=== PATIENT | male | born 1940 | race Caucasian/White ===

== ENCOUNTER 2018-08-07 13:00 | Inpatient (IN) | payer BC ==
[2018-08-12] MEDS ORDERED: VANCOMYCIN HCL 1,000 MG in DEXTROSE 5 % IN WATER 250 ML IVPB ONE ×2 (06:00)
[2018-08-12] MEDS ORDERED: METOCLOPRAMIDE 10 MG TABLET PO ONE (06:00)
[2018-08-12] MEDS ORDERED: CELECOXIB 100 MG CAPSULE PO ONE (06:00)
[2018-08-12] MEDS ORDERED: CEFAZOLIN 2 Gram 2 GM/50 ML BAG IVPB ONE (06:00)
[2018-08-12] MEDS ORDERED: MECLIZINE 25 MG TABLET PO ONE (06:00)
[2018-08-12] MEDS ORDERED: FAMOTIDINE 20MG TABLET PO ONE (06:00)
[2018-08-12 11:56] LABS: ABO GROUP B; ANTIBODY SCREEN NEGATIVE (NEGATIVE); RH TYPE POSITIVE
[2018-08-12] MEDS ORDERED: MAGNESIUM HYDROXIDE 30 ML UDC PO PRN (12:36)
[2018-08-12] MEDS ORDERED: ACETAMINOPHEN W/ CODEINE 300MG/60MG TABLET PO PRN ×2 (12:36)
[2018-08-12] MEDS ORDERED: ONDANSETRON HCL IV 4 MG/2 ML VIAL IVP PRN (12:36)
[2018-08-12] MEDS ORDERED: BISACODYL 10 MG SUPP RC PRN (12:36)
[2018-08-12] MEDS ORDERED: NALOXONE 0.4 MG/1 ML VIAL IVP PRN (12:36)
[2018-08-12] MEDS ORDERED: KETOROLAC 30 MG/ML VIAL IVP PRN ×2 (12:36)
[2018-08-12] MEDS ORDERED: AL HYDROX/MAG HYDROX 30ML UD PO PRN (12:36)
[2018-08-12] MEDS ORDERED: DIPHENHYDRAMINE HCL 25 MG CAPSULE PO PRN (12:36)
[2018-08-12] MEDS ORDERED: ACETAMINOPHEN 325 MG TAB PO PRN (12:36)
[2018-08-12] MEDS ORDERED: ZOLPIDEM TARTRATE 5 MG TABLET PO PRN (12:36)
[2018-08-12] MEDS ORDERED: KETAMINE HCL 100MG/1ML VIAL INJ ONE (14:00)
[2018-08-12] MEDS ORDERED: MIDAZOLAM HCL 2MG/2ML VIAL IV ONE (14:00)
[2018-08-12] MEDS ORDERED: GLYCOPYRROLATE 0.2 MG/ML ML IV ONE (14:00)
[2018-08-12] MEDS ORDERED: PROPOFOL 10 MG/ML VIAL IV ONE (14:00)
[2018-08-12] MEDS: POTASSIUM CHLORIDE/D5-0.9%NACL 20 MEQ/1,000 ML BAG IV SCH ×2 (16:00→21:38)
[2018-08-12] MEDS: HYDROCODONE/APAP 10/325 TABLET PO PRN ×3 (16:25→21:36)
[2018-08-12] MEDS: LISINOPRIL 10 MG TABLET PO SCH ×2 (16:25→21:37)
[2018-08-12] MEDS: CEFAZOLIN 2 Gram 2 GM/50 ML BAG IVPB SCH (18:10)
[2018-08-12] MEDS: HYDROMORPHONE HCL 2 MG/ML VIAL IM PRN (19:17)
[2018-08-12] MEDS: DOCUSATE SODIUM 100 MG CAPSULE PO SCH (21:40)
[2018-08-13] MEDS: HYDROCODONE/APAP 10/325 TABLET PO PRN ×5 (00:28→21:44)
[2018-08-13] MEDS: CEFAZOLIN 2 Gram 2 GM/50 ML BAG IVPB SCH ×2 (02:13→10:46)
[2018-08-13] MEDS: HYDROMORPHONE HCL 2 MG/ML VIAL IM PRN ×2 (02:16→19:19)
[2018-08-13] MEDS: POTASSIUM CHLORIDE/D5-0.9%NACL 20 MEQ/1,000 ML BAG IV SCH ×3 (05:36→21:39)
[2018-08-13 06:38] LABS: HEMATOCRIT 39.3 % (42.0-52.0); HEMOGLOBIN 12.3 gm/dl (14.0-18.0)
[2018-08-13 06:50] LABS: CREATININE 1.3 mg/dL (0.7-1.2)
--- NOTE | 2018-08-13 08:36 | Rehab Evaluation ---
Patient Information - Patient Information Diagnosis: R hip OA Ordered Treatment: PT Evaluate and Treat Status: Initial Evaluation Surgery: Yes (THR R LE) Date of Surgery: 08/12/18 Past Medical/Surgical Hx: PAST MEDICAL/SURGICAL HISTORY Past Surgical History Right shoulder sx c scope EGD hernia repair TURP PMH - Respiratory Hx Respiratory Disorders No PMH - Cardiovascular Hx Cardiovascular Disorders Yes Hx Hypertension Yes: on meds with good control Exercise Tolerance Good PMH - Neuro Hx Neurological Disorders No PMH - GI Hx Gastrointestinal Disorders No PMH - Hx Genitourinary Disorders No PMH - Endocrine Hx Endocrine Disorders No PMH - Musculoskeletal Hx Musculoskeletal Disorders Yes Hx Gout Yes: in past Comment: right hip pain PMH - Psych Hx Psychiatric Problems No PMH - Hematology/Oncology Hx Hematology/Oncology Yes Disorders Hx Bruising Yes: bruises easily Premorbid Status: Detail (The patient was independent with all mobility prior to surgery.) Social History: Detail (The patient lives alone in an apartment with 7 steps at the enterance. The bathroom is equipped with a tub/shower combination, grab bars , standard toilet with a riser seat. The patient has a front wheeled walker and standard cane.) Precautions: [place], Fall, Other (THR precautions) - Time With Patient Total Time Spent With Patient (Min): 30 Treatment Procedures: Detail (PT evalution, gait training) Subjective Information - Subjective Information Per Patient (The patient had no complaints of pain but complained of R hip aching.) Objective Data - Mental Status Patient Orientation: Oriented x3 - Visual Perception Appears within normal limits for therapeutic activities - ROM Not within normal limits (The patient's R hip was within total hip precautions. All other LE AROM was WNL.) - Strength/Tone Not within normal limits (The patient's R LE strength was not tested secondary to s/p surgery, however LE strength was functional ie: patient was able to lift R LE in and out of bed. The patient's L LE strength was WNL.) - Bed Mobility Independent (The patient was independent with supine to and from sit and scooting up in bed.) - Transfers Independent (The patient was independent with sit to and from stand transfer.) - Balance Balance Sitting: Good Balance Standing: Good - Sensation Intact - Gait Detail (The patient ambulated with front wheeled walker a distance of 200 feet plus WBAT on the R LE with supervision for safety only.) Therapy Assessment - Therapy Assessment Detail (The patient was independent with bed mobility and sit to stand transfer and the patient requires supervision for safety only with ambulation. Feel the patient will progress well with mobility.) Patient Education - Patient Education Teaching Topic: Exercise/Activity (The patient's home THR exercise program was reviewed: ankle pump, supine hip abduction, heel slides, gluteal sets, quad sets , hamstring sets.), Precautions (The patient identified and expressed good understanding of THR precautions.) Response: Return Demonstration Teaching Method: Discussion, Demonstration, Handout Teaching Recipient: Patient Barriers To Learning: Age Related Problem List - Problem List Physical Therapy Problem List: Detail (1) Impaired ambulation due to R THR 2) Decreased R LR s/p surgery 3) Non ambulatory on the stairs) Goals - Goals Physical Therapy Goals: 1) The patient will require supervision for safety on a flight of stairs using proper technique. 2) The patient will be independent with all transfers including tub and car transer. Prognosis - Prognosis Good Plan - Plan Physical Therapy Plan: PT 1-2 times a day for gait training on stairs and transfer training.
[2018-08-13] MEDS: LISINOPRIL 10 MG TABLET PO SCH ×3 (09:21→21:40)
[2018-08-13] MEDS: RIVAROXABAN 10 MG TABLET PO SCH (09:21)
[2018-08-13] MEDS: FERROUS SULFATE 325 MG TAB PO SCH (09:21)
[2018-08-13] MEDS: DOCUSATE SODIUM 100 MG CAPSULE PO SCH ×2 (09:21→21:43)
[2018-08-13] MEDS ORDERED: BUPIVACAINE 0.5% W/EPI MPF 30 ML VIAL IVP ONE (09:23)
[2018-08-13] MEDS ORDERED: TRANEXAMIC ACID 1,000 MG/10 ML ML IV ONE (09:23)
--- NOTE | 2018-08-13 09:50 | Operative Note ---
DATE OF SURGERY: 08/12/2018 PREOPERATIVE DIAGNOSIS: End-stage arthrosis of the right hip. POSTOPERATIVE DIAGNOSIS: End-stage arthrosis of the right hip. OPERATION: Cementless right total hip arthroplasty using [employer] components with a size 56 no-hole Reflection cup, 32 mm diameter 35-degree offset liner, a size 15 high-offset cementless [place] stem with a +8 32 mm diameter cobalt chrome head. Staff Surgeon: Marbin Díaz MD Anesthesia: Spinal. PREPARATION: Chloraprep. INDIVIDUAL CONSIDERATIONS: None. PROCEDURE: The patient was taken to the operating room, placed supine on the operating room table. He had a successful induction of spinal anesthetic. He was then placed on his side right side up and his right leg and hip were prepped and draped in the usual fashion. The patient had direct posterior approach to the hip. Sharp dissection carried down through skin and subcutaneous tissues. Small veins were coagulated with a Bovie. The tensor gluteal fascia was opened along the entire length of the incision, and deep retractors were placed. Short external rotators were identified, piriformis fossa removed exposing the posterior capsule. Posterior capsulectomy was performed. Hip was dislocated posteriorly. He had basically totally exposed bone on his femoral head with large marginal osteophytes. An oscillating saw was used to make a neck cut just above the lesser trochanter. A rim capsulectomy was then performed. Starting with a 47 mm reamer to medialize to the medial wall, I reamed to the introitus, which was 55 for a 56 cup. I slightly under-reamed to a 54. After thorough irrigation, I impacted a size 56 no-hole Reflection cup in 20 degrees of forward flexion and 40 degrees of abduction using the extraarticular alignment guide and bony landmarks. There was solid cementless fixation. A large posterior wall osteophyte was removed with an osteotome. After irrigation, the center cap screw was placed and then I impacted a 35-degree offset 32 mm diameter liner with the offset directly posteriorly and slightly inferiorly. This gave an excellent stable acetabular construct, and this was packed off. The proximal femur was delivered into the wound, and box cutting osteotome was used to remove the proximal metaphyseal bone. Mid stem reaming was done to a size 15. I started barely feeling cortex between I would say around 13-francisco. I broached to a 15 dialing anteversion about 25 degrees. Followed the natural anteversion angle. After calcar reaming, it was found that a +8 trial had absolute stability. The trial was removed. I thorough irrigated out and then impacted a size 15 high offset [place] stem with solid cementless fixation and solid calcar contact. A +8 32 mm diameter cobalt chrome head was placed on the dried [place] taper. Hip was reduced. I had absolute stability, full anterior stability in extension and external rotation, full posterior stability with flexion up to the chest and even internally rotating 90 degrees. Hemostasis was obtained with a Bovie. Thorough irrigation again to remove any visual or palpable debris. Sciatic nerve was inspected and found to be completely intact. The patient did receive 1 g of tranexamic acid preoperatively. I mixed 1 g of tranexamic acid with 30 mL of saline and placed this deep in the fascia. The fascia was then closed with a running #2 quill, subcu was closed in layers with running 0 quill, skin was closed with ezra. The skin and subcutaneous tissue was infiltrated 30 mL of 0.5% Marcaine with epinephrine and a sterile bulky compressive GIOVANNY-type dressing was applied. The patient tolerated the procedure well. Needle and sponge counts were correct. Estimated blood loss was minimal. He was taken back to recovery in good condition. There were no complications. BRITTANY
--- NOTE | 2018-08-13 09:57 | Rehab Evaluation ---
Patient Information - Patient Information Diagnosis: DJD right hip Ordered Treatment: OT Evaluate and Treat Status: Initial Evaluation Surgery: Yes (THR R LE) Date of Surgery: 08/12/18 Past Medical/Surgical Hx: PAST MEDICAL/SURGICAL HISTORY Past Surgical History Right shoulder sx c scope EGD hernia repair TURP PMH - Respiratory Hx Respiratory Disorders No PMH - Cardiovascular Hx Cardiovascular Disorders Yes Hx Hypertension Yes: on meds with good control Exercise Tolerance Good PMH - Neuro Hx Neurological Disorders No PMH - GI Hx Gastrointestinal Disorders No PMH - Hx Genitourinary Disorders No PMH - Endocrine Hx Endocrine Disorders No PMH - Musculoskeletal Hx Musculoskeletal Disorders Yes Hx Gout Yes: in past Comment: right hip pain PMH - Psych Hx Psychiatric Problems No PMH - Hematology/Oncology Hx Hematology/Oncology Yes Disorders Hx Bruising Yes: bruises easily Premorbid Status: Detail (The patient was independent with all mobility, meal prep, laundry and home mgmt prior to surgery.) Social History: Detail (The patient lives alone in a second floor apartment with 7 steps and chan handrails at the entrance. The bathroom is equipped with a tub/shower combination, grab bars, standard height toilet with a riser seat although the riser does not fit over his toilet so he will be finding a different one. The patient has a front wheeled walker and standard cane.) Precautions: [place], Fall, Other (THR precautions) - Time With Patient Total Time Spent With Patient (Min): 45 Treatment Procedures: Detail (OT eval low complexity) Subjective Information - Subjective Information Per Patient Objective Data - Pain Pain Present: No (Pt reports no pain at rest although he says it increases to 2- 3 with mobility) - Mental Status Patient Orientation: Oriented x3 - Visual Perception Appears within normal limits for therapeutic activities - ROM Within normal limits (Chan UE AROM WNL) - Strength/Tone Within normal limits (Chan UE strength WNL) - Coordination Appears within normal limits for therapeutic activities - Transfers Independent (Ind with sit to stand from elevated chair and commode heights.) - Balance Balance Sitting: Good Balance Standing: Good - Sensation Intact - Gait Detail (Pt ambulating in room with 2 wheeled walker and SBA.) - ADL's/IADL's Detail (Pt educated re: modified LE dressing techniques using time recorder, sock aid and long shoe horn. He required verbal cues to recall total hip precautions. Using time recorder, sock aid and long shoe horn, pt was able to doff slipper socks and don sweatpants, socks and tennis shoes with min assist for right shoe. Pt is concerned about IADLs after return home as he lives alone and doesn't have anyone to assist him.) Therapy Assessment - Therapy Assessment Detail (Pt requires min assist for modified LE dressing techniques using adaptive equipment. Recommend short IP rehab stay to ensure safety and Ind with ADLs/IADLs.) Problem List - Problem List Occupational Therapy Problem List: Detail (1. Decreased Ind with IADL tasks. 2. Required min assist for donning tennis shoes using long shoe horn.) Goals - Goals Occupational Therapy Goals: 1. Pt will Ind with modified LE dressing. 2. Pt will be safe and Ind with meal prep, laundry and home mgmt tasks while maintaining total hip precautions. Prognosis - Prognosis Good Plan - Plan Occupational Therapy Plan: Recommend short Rehab stay to ensure safety and Ind with ADLs/IADLs. OT will cont 1-2 times per week until discharge.
[2018-08-13] MEDS: TRAMADOL HCL 50 MG TABLET PO PRN (10:45)
--- NOTE | 2018-08-13 14:26 | Physical Therapy Tx Note ---
Physical Therapy Tx Note - Treatment Note Tolerated: Good Total Time Spent With Patient: 20 Physical Therapy Tx Note: Detail (The patient was in bed when PT arrived. The patient required minimal PA with supine to sit. The patient ambulated with front wheeled walker a distance of 200 feet x 1 WBAT on the R LE with supervision for safety only. The patient ambulated on 3 steps with supervision for safety using one railing and folded walker using proper technique.) Physical Therapy Problem List: Detail (1) Impaired ambulation due to R THR 2) Decreased R LR s/p surgery 3) Non ambulatory on the stairs) Physical Therapy Goals: 1) The patient will require supervision for safety on a flight of stairs using proper technique (Goal Met). 2) The patient will be independent with all transfers including tub and car transer. Physical Therapy Plan: PT 1-2 times a day for gait training on stairs and transfer training.
[2018-08-14] MEDS: HYDROMORPHONE HCL 2 MG/ML VIAL IM PRN (00:20)
[2018-08-14] MEDS: HYDROCODONE/APAP 10/325 TABLET PO PRN ×4 (03:38→22:13)
[2018-08-14 06:31] LABS: HEMATOCRIT 41.4 % (42.0-52.0); HEMOGLOBIN 13.5 gm/dl (14.0-18.0)
[2018-08-14 06:43] LABS: CREATININE 1.3 mg/dL (0.7-1.2)
--- NOTE | 2018-08-14 11:15 | Physical Therapy Tx Note ---
Physical Therapy Tx Note - Treatment Note Tolerated: Good Total Time Spent With Patient: 25 Physical Therapy Tx Note: Detail (Patient was seated in chair upon BODY FITTER arrival. Patient states he just went for a walk prior to BODY FITTER arrival. Patient transferred sit to and from stand SBA x1. Patient performed the following exercises x10 reps each: standing heel raises, standing toe raises, quad sets, glut squeezes, isometric hip abduction, isometric hip adduction, heel slides, supine hip abduction, hamstring sets, and seated marching. Patient transferred sit to and from supine independently. Patient transferred sit to stand SBA x1. Patient ambulated 504 feet with wheeled walker SBA x1. Patient tolerated treatment well. Patient reports complaints of posterior right leg pain with quad sets. Patient reports right hip and LE much more loose after exercises while pt ambulating. Patient was left standing in room, states he will use the bathroom.) Physical Therapy Problem List: Detail (1) Impaired ambulation due to R THR 2) Decreased R LR s/p surgery 3) Non ambulatory on the stairs) Physical Therapy Goals: 1) The patient will require supervision for safety on a flight of stairs using proper technique (Goal Met). 2) The patient will be independent with all transfers including tub and car transer. Prognosis: Good Physical Therapy Plan: PT 1-2 times a day for gait training on stairs and transfer training.
[2018-08-14] MEDS: LISINOPRIL 10 MG TABLET PO SCH ×2 (11:25→22:15)
[2018-08-14] MEDS: DOCUSATE SODIUM 100 MG CAPSULE PO SCH ×2 (11:25→22:15)
[2018-08-14] MEDS: FERROUS SULFATE 325 MG TAB PO SCH (11:25)
[2018-08-14] MEDS: RIVAROXABAN 10 MG TABLET PO SCH (11:26)
[2018-08-14] MEDS: POTASSIUM CHLORIDE/D5-0.9%NACL 20 MEQ/1,000 ML BAG IV SCH (11:27)
--- NOTE | 2018-08-14 14:47 | Physical Therapy Tx Note ---
Physical Therapy Tx Note - Treatment Note Tolerated: Good Total Time Spent With Patient: 20 Physical Therapy Tx Note: Detail (Patient was reclined in chair upon PRESTO LOG OPERATOR arrival. Patient states he is getting muscle spasms in right hamstrings. Patient transferred sit to and from stand SBA x1. Patient ambulated 10 feet with wheeled walker SBA x1. Patient transferred sit to and from stand independently. Patient ambulated 509 feet with wheeled walker SBA x1. Patient performed the following exercises x10 reps each seated in chair: heel raises, toe raises, LAQ, marching, right hip abduction with yellow theraband, isometric hip adduction, glut squeezes, and hamstring curls with yellow theraband. Patient tolerated treatment well. Patient displays decreased strength and endurance with right hip abduction with yellow theraband. Patient reports no increased complaints of pain after treatment. Patient was left seated in chair with call light within reach.) Physical Therapy Problem List: Detail (1) Impaired ambulation due to R THR 2) Decreased R LR s/p surgery 3) Non ambulatory on the stairs) Physical Therapy Goals: 1) The patient will require supervision for safety on a flight of stairs using proper technique (Goal Met). 2) The patient will be independent with all transfers including tub and car transer. Prognosis: Good Physical Therapy Plan: PT 1-2 times a day for gait training on stairs and transfer training.
[2018-08-15] MEDS: TRAMADOL HCL 50 MG TABLET PO PRN (01:06)
[2018-08-15] MEDS: HYDROCODONE/APAP 10/325 TABLET PO PRN ×2 (03:48→10:59)
--- NOTE | 2018-08-15 09:21 | Physical Therapy Tx Note ---
Physical Therapy Tx Note - Treatment Note Tolerated: Good Total Time Spent With Patient: 20 Physical Therapy Tx Note: Detail (The patient was up in chair when PT arrived. The patient was able to put on his shoes independently with use of long handled shoe horn. The patient was independent with sit to and from stand transfer. The patient ambulated independently with front wheeled walker a distance of 100 feet WBAT on the R LE . The patient ambulated on a flight of 3 steps and a flight of 7 steps with use of folded walker and one railing with supervision for safety and occasional verbal cues to put his whole L foot on step when ascending. Recommend the patient have supervision of 1 for safety when ambulating on stairs. The patient exhibited shortness of breath after ambulating on stairs. Home PT recommended to assess the patient's safety on his stairs at home. The patient has been ambulating independently in his room and ambulating distances of over 300 feet with supervision for safety only.) Physical Therapy Problem List: Detail (1) Impaired ambulation due to R THR 2) Decreased R LR s/p surgery 3) Non ambulatory on the stairs) Physical Therapy Goals: 1) The patient will require supervision for safety on a flight of stairs using proper technique (Goal Met). 2) The patient will be independent with all transfers including tub and car transer. Physical Therapy Plan: Discharge from [facility] is anticipated today.
--- NOTE | 2018-08-15 09:58 | Occupational Therapy Tx Note ---
Occupational Therapy Tx Note - Treatment Note Tolerated: Good Total Time Spent With Patient: 45 (ADL) Occupational Therapy Treatment Note: Detail (S: Pt up in chair, reports 6/10 pain in right hip. O: Reviewed modified LE dressing techniques and pt was able to demonstrate doffing sweatpants, shirt and tennis shoes (with assist to untie) and donned clean shirt, sweatpants and tennis shoes with use of deliver driver and long shoe horn with shoes tied loosely. Pt transported to rehab kitchen via wheelchair. Reviewed kitchen modifications and use of walker, pt was able to demonstrate transporting items from microwave to counter to table. Pt reports he does not have a stool that he can use in the kitchen and will have to transport food to table which is not adjacent to kitchen counters. He is concerned about using vacuum as well as getting up and down his steps. Educated pt on modifications for kitchen, he verbalized understanding. Pt transported back to room via wheelchair. A: Pt able to demonstrate modified LE dressing techniques as well as simple kitchen task using walker. Pt reports 6/10 pain and he is concerned about being alone and performing IADL tasks.) Occupational Therapy Problem List: Detail (1. Decreased Ind with IADL tasks. 2. Required min assist for donning tennis shoes using long shoe horn.) Occupational Therapy Goals: 1. Pt will Ind with modified LE dressing. 2. Pt will be safe and Ind with meal prep, laundry and home mgmt tasks while maintaining total hip precautions. Prognosis: Good Occupational Therapy Plan: Continue to recommend short Rehab stay to ensure safety and Ind with ADLs/IADLs. OT will cont 1-2 times per week until discharge.
[2018-08-15] MEDS: DOCUSATE SODIUM 100 MG CAPSULE PO SCH (10:56)
[2018-08-15] MEDS: FERROUS SULFATE 325 MG TAB PO SCH (10:56)
[2018-08-15] MEDS: LISINOPRIL 10 MG TABLET PO SCH (10:56)
[2018-08-15] MEDS: RIVAROXABAN 10 MG TABLET PO SCH (10:59)
[2018-08-15] MEDS ORDERED: 0.9 % SODIUM CHLORIDE 10 ML VIAL IVP ONE (13:49)
[2018-08-15] MEDS ORDERED: TRANEXAMIC ACID 1,000 MG/10 ML ML IV ONE (13:49)
--- NOTE | 2018-08-15 19:18 | Discharge Summary ---
DATE OF ADMISSION: 08/12/2018 DATE OF DISCHARGE: 08/15/2018 DATE OF SURGERY: 08/12/2018 HISTORY: Mr. Barillas is a delightful 78-year-old male who presents with end- stage arthrosis of his right hip. He was admitted after a right total hip arthroplasty. Postoperatively, he did well. His hospital course was unremarkable. Discharge hemoglobin was 13.5. He did not require a transfusion. DISCHARGE INSTRUCTIONS: The plan is to discharge him to rehab. He should finish up an additional two more days of Xarelto, which will give him five days post-op Xarelto followed by 30 days of a regular Aspirin daily. He will be given [place] for pain. His GIOVANNY dressing should be removed in seven days. His discharge condition was good. Sutures should be removed in two weeks post-op and he should follow-up in my office in a month. FINAL DIAGNOSIS/PRIMARY DIAGNOSIS: END-STAGE ARTHROSIS OF THE RIGHT HIP. OPERATIONS AND PROCEDURES: CEMENTLESS RIGHT TOTAL HIP ARTHROPLASTY. JOB NUMBER: [id number] MTDD
== END 2018-08-15 16:00 | disposition home health service (06) | DRG 470 ==
LOC: MEDSURG 08-12 08:47
PROVIDERS: ADMIT Orthopaedic Surgery; ATTEND Orthopaedic Surgery
PROC: 0SR906A Replacement of Right Hip Joint with Oxidized Zirconium on Polyethylene Synthetic Substitute, Uncemented, Open Approach (ICD-10-PCS; principal; 2018-08-12 11:00)
DX: M16.11 Unilateral primary osteoarthritis, right hip (principal); I10 Essential (primary) hypertension
CPT/HCPCS: 80048; 85014; 85018; 86850; 86900; 86901; 97110; 97530; 97535; C1776; J1885; J3480; J3490; J7060